=== PATIENT | female | born 1935 | race Caucasian/White ===

== ENCOUNTER 2019-01-18 22:48 | Emergency (ER) | payer MEDICARE, MEDICAID ==
[~2019-01-18] VITALS: Ht 152.4 cm; Wt 47.6 kg
[2019-01-18] MEDS ORDERED: VANCOMYCIN INJECTION 1,000 MG in NS (IVPB) 250 ML IV ONE (23:30)
[2019-01-18] MEDS ORDERED: CEFEPIME INJECTION 1,000 MG in WATER (STERILE) FOR INJECTION 10 ML IV ONE (23:30)
[2019-01-18] MEDS ORDERED: NS IV 1000 ML 2,100 ML IV ONE (23:30)
--- NOTE | 2019-01-18 23:55 | ED General ---
General Chief Complaint: Cough/Cold/Flu Symptoms Stated Complaint: FEVER Nursing Triage Note: pt sent from care home per ems for cough and fever, pt wtih hx of dementia and is confused but verbal. at bedside and is able to answer questions Nursing Sepsis Screen: Possible Sepsis Risk Exam Limitations: Other (baseline dementia) History of Present Illness Date Seen by Provider: Jan 18, 2019 Time Seen by Provider: 23:20 This is an 83-year-old female with a history of severe dementia who is brought to the emergency department from her care home for fever and cough first reported today. Patient cannot provide any history herself due to baseline dementia. No other symptoms were reported to us however. Allergies and Home Medications Allergies Coded Allergies: No Known Drug Allergies (Unverified , 01/18/19) Home Medications Acetaminophen 325 Mg Tablet, PRN, (Reported) Guaifenesin 400 Mg Tablet, 400 MG PO Q4H PRN for COUGH Prescribed by: ESA MCCANN on 01/19/19207 Levofloxacin 750 Mg Tablet, 750 MG PO DAILY Prescribed by: ESA MCCANN on 01/19/19207 Ondansetron HCl 4 Mg Tab, PRN, (Reported) Oseltamivir Phosphate 75 Mg Cap, 75 MG PO BID Prescribed by: ESA MCCANN on 01/19/19207 Polyethylene Glycol 3350 17 Gm Powd.pack, DAILY, (Reported) Promethazine Hcl 12.5 Mg Tablet, PRN, (Reported) Patient Home Medication List Home Medication List Reviewed: Yes Review of Systems Review of Systems Constitutional: other (review of systems is not obtainable secondary to dementia) Past Tarhnzu-Swghiq-Fiksjn Hx Patient Social History Recent Foreign Travel: No Contact w/Someone Who Travel: No Recent Infectious Disease Expo: No Physical Abuse: No Sexual Abuse: No Mistreated: No Fear: No Physical Exam Vital Signs Vital Signs - First Documented 01/18/19 01/18/19 23:15 23:26 Temp 99.6 Pulse 107 Resp 18 B/P (MAP) 150/79 (102) Pulse Ox 95 O2 Delivery Room Air Capillary Refill : Less Than 3 Seconds Height, Weight, BMI Height: 5'" Weight: 105lbs. oz. 47.715408jj; BMI Method:Stated General Appearance: No Apparent Distress HEENT: Normal ENT Inspection Neck: Supple; No JVD Respiratory: Other (mild coarse breath sounds bilaterally) Cardiovascular: Regular Rate, Rhythm, Normal Peripheral Pulses Gastrointestinal: Non Tender, Soft Extremity: Pedal Edema (mild, symmetrical) Neurologic/Psychiatric: Other (awake. Unable to cooperate with thorough neurologic testing however moves all 4 extremities grossly symmetrically, wiggles her toes on both sides after asking multiple times, no facial droop, says "no" when pressing on the skin of both feet, sensation appears to be intact symmetrically) Skin: Warm/Dry Focused Exam Lactate Level 01/18/19 00:05: Lactic Acid Level 2.15*H 01/19/19 01:54: Lactic Acid Level 2.10*H Lactic Acid Level Laboratory Tests Test 01/19/19 01:54 Lactic Acid Level 2.10 MMOL/L (0.50-2.00) *H Progress/Results/Core Measures Suspected Sepsis Recent Fever Within 48 Hours: Yes Infection Criteria Present: Suspected New Infection New/Unexplained Altered Menta: No Sepsis Screen: Possible Sepsis Risk SIRS Temperature:99.6 Pulse: 107 Respiratory Rate: 18 Laboratory Tests 01/18/19 00:05: White Blood Count 8.9 Blood Pressure 150 /79 Mean: 102 01/18/19 00:05: Lactic Acid Level 2.15*H 01/19/19 01:54: Lactic Acid Level 2.10*H Laboratory Tests 01/18/19 00:05: Creatinine 0.48L, INR Comment 1.1, Platelet Count 236, Total Bilirubin 0.2 Results/Orders Lab Results Laboratory Tests Test 01/18/19 00:05 01/18/19 00:45 01/19/19 01:54 Range/Units White Blood Count 8.9 4.3-11.0 10^3/uL Red Blood Count 3.55 L 4.35-5.85 10^6/uL Hemoglobin 10.8 L 11.5-16.0 G/DL Hematocrit 34 L 35-52 % Mean Corpuscular Volume 94 80-99 FL Mean Corpuscular Hemoglobin 30 25-34 PG Mean Corpuscular Hemoglobin Concent 32 32-36 G/DL Red Cell Distribution Width 14.4 10.0-14.5 % Platelet Count 236 130-400 10^3/uL Mean Platelet Volume 9.2 7.4-10.4 FL Neutrophils (%) (Auto) 84 H 42-75 % Lymphocytes (%) (Auto) 7 L 12-44 % Monocytes (%) (Auto) 7 0-12 % Eosinophils (%) (Auto) 0 0-10 % Basophils (%) (Auto) 0 0-10 % Neutrophils # (Auto) 7.5 1.8-7.8 X 10^3 Lymphocytes # (Auto) 0.7 L 1.0-4.0 X 10^3 Monocytes # (Auto) 0.6 0.0-1.0 X 10^3 Eosinophils # (Auto) 0.0 0.0-0.3 10^3/uL Basophils # (Auto) 0.0 0.0-0.1 10^3/uL Neutrophils % (Manual) 73 % Lymphocytes % (Manual) 8 % Monocytes % (Manual) 5 % Eosinophils % (Manual) 1 % Basophils % (Manual) 0 % Metamyelocytes % 1 % Myelocytes % 1 % Band Neutrophils 11 % Prothrombin Time 13.8 12.2-14.7 SEC INR Comment 1.1 0.8-1.4 Activated Partial Thromboplast Time 33 24-35 SEC Sodium Level 140 135-145 MMOL/L Potassium Level 3.7 3.6-5.0 MMOL/L Chloride Level 102 98-107 MMOL/L Carbon Dioxide Level 25 21-32 MMOL/L Anion Gap 13 5-14 MMOL/L Blood Urea Nitrogen 15 7-18 MG/DL Creatinine 0.48 L 0.60-1.30 MG/DL Estimat Glomerular Filtration Rate > 60 BUN/Creatinine Ratio 31 Glucose Level 171 H 70-105 MG/DL Lactic Acid Level 2.15 *H 2.10 *H 0.50-2.00 MMOL/L Calcium Level 8.6 8.5-10.1 MG/DL Corrected Calcium 9.0 8.5-10.1 MG/DL Total Bilirubin 0.2 0.1-1.0 MG/DL Aspartate Amino Transf (AST/SGOT) 13 5-34 U/L Alanine Aminotransferase (ALT/SGPT) 8 0-55 U/L Alkaline Phosphatase 51 40-136 U/L Total Protein 6.2 L 6.4-8.2 GM/DL Albumin 3.5 3.2-4.5 GM/DL Urine Color YELLOW Urine Clarity SL CLOUDY Urine pH 7.5 5-9 Urine Specific [place] 1.015 L 1.016-1.022 Urine Protein 1+ H NEGATIVE Urine Glucose (UA) NEGATIVE NEGATIVE Urine Ketones TRACE H NEGATIVE Urine Nitrite NEGATIVE NEGATIVE Urine Bilirubin NEGATIVE NEGATIVE Urine Urobilinogen 0.2 NORMAL MG/DL Urine Leukocyte Esterase NEGATIVE NEGATIVE Urine RBC (Auto) 2+ H NEGATIVE Urine RBC 5-10 H /HPF Urine WBC 5-10 H /HPF Urine Squamous Epithelial Cells 5-10 /HPF Urine Crystals NONE /LPF Urine Bacteria LARGE H /HPF Urine Casts NONE /LPF Urine Mucus NONE /LPF Urine Culture Indicated NO Micro Results Microbiology 01/18/19 Influenza Types A,B Antigen (IR[facility]) - Final, Complete My Orders Orders - ESA MCCANN DO Cbc With Automated Diff (01/18/19 23:28) Comprehensive Metabolic Panel (01/18/19 23:28) Blood Culture (01/18/19 23:28) Urinalysis (01/18/19 23:28) Urine Culture (01/18/19 23:28) Protime With Inr (01/18/19 23:28) Partial Thromboplastin Time (01/18/19 23:28) Chest 1 View Ap/Pa Only (01/18/19 23:28) Saline Lock/Iv-Start (01/18/19 23:28) Saline Lock/Iv-Start (01/18/19 23:28) Vital Signs Adult Sepsis Patie Q15M (01/18/19 23:28) O2 (01/18/19 23:28) Remove Rings In Anticipation O (01/18/19 23:28) Lactic Acid Analyzer (01/18/19 23:28) Influenza A And B Antigens (01/18/19 23:28) Ns Iv 1000 Ml (Sodium Chloride 0.9%) (01/18/19 23:30) Cefepime Injection (Maxipime Injection) (01/18/19 23:30) Vancomycin Injection (Vancomycin Injecti (01/18/19 23:30) Ct Chest Wo (01/19/19 00:51) Manual Differential (01/18/19 00:05) Oseltamivir 75 Mg Capsule (Tamiflu 75 (01/19/19 02:01) Oseltamivir 75 Mg Capsule (Tamiflu 75 (01/19/19 02:10) Medications Given in ED Current Medications Medications Dose Ordered Sig/Amtt Route Start Time Stop Time Status Last Admin Dose Admin Cefepime HCl 1000 mg/Sterile Water 10 ml @ 200 mls/hr ONCE ONCE IV 01/18/19 23:30 01/18/19 23:32 DC 01/19/19 00:35 200 MLS/HR Sodium Chloride 2,100 ml @ 2,100 mls/hr ONCE ONCE IV 01/18/19 23:30 01/19/19 00:29 DC 01/19/19 00:35 2,100 MLS/HR Vancomycin HCl 1000 mg/Sodium Chloride 250 ml @ 250 mls/hr ONCE ONCE IV 01/18/19 23:30 01/19/19 00:29 DC 01/19/19 00:35 250 MLS/HR Vital Signs/I&O 01/18/19 01/18/19 23:15 23:26 Temp 99.6 Pulse 107 Resp 18 B/P (MAP) 150/79 (102) Pulse Ox 95 O2 Delivery Room Air Room Air Capillary Refill : Less Than 3 Seconds Blood Pressure Mean: 102 Progress Note : Progress Note Patient is at risk for multidrug resistant organisms, she had a fever prior to arrival, she had a borderline temperature here although we did not obtain a rectal temperature. She has no leukocytosis but she does have a left shift. Lactic acid returned elevated greater than 2 but less than 4. Chest x-ray was abnormal, CT of the chest does not show evidence of pneumonia, however there is evidence of a urinary tract infection and I would empirically treat for influenza. Pt's requests dc back to care home. Will start empiric tamiflu and will treat with levaquin for UTI so as to cross cover for possible bacterial component to cough. Departure Impression Primary Impression: UTI (urinary tract infection) Additional Impressions: Lactic acidosis Bronchitis Disposition: 01 HOME, SELF-CARE Condition: Stable Departure-Patient Inst. Referrals: NO,LOCAL PHYSICIAN (PCP) Primary Care Physician Patient Instructions: Acute Bronchitis, Adult (DC) Scripts Guaifenesin (Guaifenesin) 400 Mg Tablet 400 MG PO Q4H PRN for COUGH for 7 Days, #30 TAB Prov: ESA MCCANN DO 01/19/19 Oseltamivir Phosphate (Tamiflu) 75 Mg Cap 75 MG PO BID for 5 Days, #9 CAP Prov: ESA MCCANN DO 01/19/19 Levofloxacin (Levofloxacin) 750 Mg Tablet 750 MG PO DAILY for 5 Days, #5 TAB Prov: ESA MCCANN DO 01/19/19 ESA MCCANN DO Jan 18, 2019 23:55
[2019-01-19] MEDS ORDERED: ASPIRIN 325 MG (00:33)
[2019-01-19] MEDS ORDERED: RALOXIFENE 60 MG (00:33)
[2019-01-19 00:45] LABS: INR 1.1 (0.8-1.4); PROTHROMBIN TIME PATIENT 13.8 SEC (12.2-14.7)
[2019-01-19 00:46] LABS: CARBON DIOXIDE 25 MMOL/L (21-32); CHLORIDE 102 MMOL/L (98-107); POTASSIUM 3.7 MMOL/L (3.6-5.0); SODIUM 140 MMOL/L (135-145)
[2019-01-19 00:47] LABS: ALANINE AMINOTRANSFERASE 8 U/L (0-55); ALBUMIN 3.5 GM/DL (3.2-4.5); ALKALINE PHOSPHATASE 51 U/L (40-136); BILIRUBIN,TOTAL 0.2 MG/DL (0.1-1.0); BUN/CREATININE RATIO 31; CALCIUM 8.6 MG/DL (8.5-10.1); CREATININE SERUM 0.48 MG/DL (0.60-1.30); GFR ESTIMATED > 60; GLUCOSE 171 MG/DL (70-105); TOTAL PROTEIN 6.2 GM/DL (6.4-8.2)
[2019-01-19] MEDS ORDERED: OMEPRAZOLE CAP 20MG (00:56)
[2019-01-19] MEDS ORDERED: ONDANSETRON TAB 4MG (00:56)
[2019-01-19] MEDS ORDERED: MEMANTINE (00:56)
[2019-01-19] MEDS ORDERED: DIVALPROEX 125 MG (00:56)
[2019-01-19] MEDS ORDERED: RISPERIDONE 0.25 MG (00:56)
[2019-01-19] MEDS ORDERED: HCL (00:56)
[2019-01-19] MEDS ORDERED: LEVOTHYROXIN TAB 50MCG (00:56)
[2019-01-19] MEDS ORDERED: RIVASTIGMINE 4.5 MG (00:56)
[2019-01-19] MEDS ORDERED: CITALOPRAM 10 MG (00:56)
[2019-01-19] MEDS ORDERED: DOCUSATE SOD (00:56)
[2019-01-19] MEDS ORDERED: FUROSEMIDE TAB 20MG (00:56)
[2019-01-19] MEDS ORDERED: ALPRAZOLAM TAB 0.5MG (00:56)
[2019-01-19 00:59] LABS: BASOPHILS % (AUTO) 0 % (0-10); EOSINOPHILS % (AUTO) 0 % (0-10); HEMATOCRIT 34 % (35-52); HEMOGLOBIN 10.8 G/DL (11.5-16.0); LYMPHOCYTES # (AUTO) 0.7 X 10^3 (1.0-4.0); LYMPHOCYTES % (AUTO) 7 % (12-44); MEAN CORPUSCULAR HEMOGLOBIN 30 PG (25-34); MEAN CORPUSCULAR HGB CONC 32 G/DL (32-36); MEAN CORPUSCULAR VOLUME 94 FL (80-99); MEAN PLATELET VOLUME 9.2 FL (7.4-10.4); MONOCYTES # (AUTO) 0.6 X 10^3 (0.0-1.0); MONOCYTES % (AUTO) 7 % (0-12); NEUTROPHILS # (AUTO) 7.5 X 10^3 (1.8-7.8); NEUTROPHILS % (AUTO) 84 % (42-75); PLATELET COUNT 236 10^3/uL (130-400); RED CELL DISTRIBUTION WIDTH 14.4 % (10.0-14.5); WHITE BLOOD COUNT 8.9 10^3/uL (4.3-11.0)
[2019-01-19 01:00] LABS: BAND NEUTROPHILS 11 %; NEUTROPHILS % (MANUAL) 73 %
[2019-01-19 01:01] LABS: BASOPHILS % (MANUAL) 0 %; EOSINOPHILS % (MANUAL) 1 %; LYMPHOCYTES % (MANUAL) 8 %; METAMYELOCYTES % 1 %; MONOCYTES % (MANUAL) 5 %; MYELOCYTES % 1 %
[2019-01-19] MEDS ORDERED: ACET325T38 (01:06)
[2019-01-19] MEDS ORDERED: POLY17PO6 (01:06)
[2019-01-19] MEDS ORDERED: PROM12.59 (01:06)
[2019-01-19] MEDS ORDERED: ONDN4T (01:06)
[2019-01-19 01:18] LABS: CLARITY,URINE SL CLOUDY; COLOR,URINE YELLOW
[2019-01-19 01:19] LABS: BACTERIA,URINE LARGE /HPF; BILIRUBIN,URINE NEGATIVE (NEGATIVE); GLUCOSE, URINE (UA) NEGATIVE (NEGATIVE); KETONES,URINE TRACE (NEGATIVE); LEUKOCYTE ESTERASE ,URINE NEGATIVE (NEGATIVE); NITRITE,URINE NEGATIVE (NEGATIVE); PH,URINE 7.5 (5-9); PROTEIN,URINE 1+ (NEGATIVE); UROBILINOGEN,URINE 0.2 MG/DL (NORMAL)
[2019-01-19] MEDS ORDERED: OSELTAMIVIR 75 MG (TAMIFLU) CAPSULE PO STA ×2 (02:01→02:10)
--- NOTE | 2019-01-19 02:05 | NUR ---
pts refused transfer, stonework supervisor notified.
[2019-01-19] MEDS ORDERED: OSLT75C PO (02:08)
[2019-01-19] MEDS ORDERED: LEVO750T39 PO (02:08)
[2019-01-19] MEDS ORDERED: GUAI400T71 PO (02:08)
[2019-01-19 02:25] VITALS: BP 129/71
--- NOTE | 2019-01-19 07:30 | Diagnostic Imaging Report ---
Indication: Cough and fever. Up-regulation of comparison. Findings: There are patchy bibasal infiltrates. Ramiro. Some minimal venous congestion. No pleural effusion or pneumothorax previous unremarkable Impression: Patchy bibasal trace left greater than right. Early pneumonia cannot excluded. Ramiro and some minimal central venous congestion Dictated by: Dictated on workstation # [id number]
--- NOTE | 2019-01-19 08:02 | Diagnostic Imaging Report ---
PROCEDURE: CT chest without contrast. TECHNIQUE: Multiple contiguous axial images were obtained through the chest without the use of intravenous contrast. INDICATION: Cough and fever with confusion There is no previous study for comparison. There is mild dependent atelectasis and/or pneumonitis in the lung bases. No consolidation is identified and there is no evidence of pulmonary mass. There is tortuous course to the trachea toward the right of midline. Note is made of circumscribed retrosternal nodule measuring approximately 0.9 x 1.1 cm in the axial plane. There is no significant pleural or pericardial fluid. No pathologic adenopathy is seen on the noncontrasted images. There is no evidence of acute osseous abnormality. IMPRESSION: Mild dependent atelectasis and/or pneumonitis without evidence of consolidating pneumonia. There is no significant third spacing of fluid. 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 Dictated by: Dictated on workstation # [id number]
== END 2019-01-19 02:25 | disposition home or self-care (01) ==
LOC: ER FS 22:50
DX: N39.0 Urinary tract infection, site not specified (principal); E87.2 Acidosis; J40 Bronchitis, not specified as acute or chronic; F03.90 Unspecified dementia, unspecified severity, without behavioral disturbance, psychotic disturbance, mood disturbance, and anxiety
CPT/HCPCS: 36415; 51701; 71045; 71250; 80053; 81000; 83605; 85007; 85027; 85610; 85730; 87040; 87088; 87804

== ENCOUNTER → 2020-03-08 | Outpatient (CLI) | payer MEDICARE, MEDICAID ==
[~2020-03-08] MED LIST: ACET325T38; ALPRAZOLAM TAB 0.5MG; ASPIRIN 325 MG; CITALOPRAM 10 MG; DIVALPROEX 125 MG; DOCUSATE SOD; FUROSEMIDE TAB 20MG; GUAI400T86 PO; HCL; LEVO750T39 PO; LEVOTHYROXIN TAB 50MCG; MEMANTINE; OMEPRAZOLE CAP 20MG; ONDANSETRON TAB 4MG; ONDN4T; OSLT75C PO; POLY17PO6; PROM12.59; RALOXIFENE 60 MG; RISPERIDONE 0.25 MG; RIVASTIGMINE 4.5 MG
[2020-03-08 13:00] LABS: POTASSIUM 4.4 MMOL/L (3.6-5.0); SODIUM 140 MMOL/L (135-145)
[2020-03-08 13:01] LABS: ALANINE AMINOTRANSFERASE 9 U/L (0-55); ALBUMIN 3.5 GM/DL (3.2-4.5); ALKALINE PHOSPHATASE 52 U/L (40-136); BILIRUBIN,TOTAL 0.2 MG/DL (0.1-1.0); BUN/CREATININE RATIO 38; CALCIUM 9.1 MG/DL (8.5-10.1); CARBON DIOXIDE 25 MMOL/L (21-32); CHLORIDE 103 MMOL/L (98-107); CREATININE SERUM 0.48 MG/DL (0.60-1.30); GFR ESTIMATED > 60; GLUCOSE 90 MG/DL (70-105); TOTAL PROTEIN 5.7 GM/DL (6.4-8.2)
[2020-03-08 16:03] LABS: FREE T4 (FREE THYROXINE) 1.02 NG/DL (0.70-1.48); VALPROIC ACID 17.8 UG/ML (50.0-100.0)
== END ==
LOC: LAB FS 11:53
PROVIDERS: ATTEND Pediatrics
DX: E03.9 Hypothyroidism, unspecified (principal); I10 Essential (primary) hypertension; F03.90 Unspecified dementia, unspecified severity, without behavioral disturbance, psychotic disturbance, mood disturbance, and anxiety
CPT/HCPCS: 36415; 80053; 80164; 84439; 84443

== ENCOUNTER → 2021-08-19 | Outpatient (CLI) | payer MEDICARE, MEDICAID ==
[2021-08-19 13:55] LABS: BILIRUBIN,URINE NEGATIVE (NEGATIVE); CLARITY,URINE CLOUDY; COLOR,URINE YELLOW; GLUCOSE, URINE (UA) NEGATIVE (NEGATIVE); KETONES,URINE NEGATIVE (NEGATIVE); NITRITE,URINE POSITIVE (NEGATIVE); PROTEIN,URINE NEGATIVE (NEGATIVE)
[2021-08-19 14:16] LABS: LEUKOCYTE ESTERASE ,URINE 1+ (NEGATIVE)
[2021-08-19 14:17] LABS: BACTERIA,URINE LARGE /HPF
== END ==
LOC: LAB FS 13:37
PROVIDERS: ATTEND Pediatrics
DX: Z01.89 Encounter for other specified special examinations (principal)
CPT/HCPCS: 81000; 87077; 87088; 87186

== ENCOUNTER 2021-11-24 14:35 | Emergency (ER) | payer MEDICARE, MEDICAID ==
--- OUTSIDE RECORDS SUMMARY | 2021-11-24 14:41 | XMS REPORT | Clinical Summary ---
Author Author [facility] Organization [facility] Address Unknown Phone Unavailable Care Team Providers Care Absorption Plant Operator Name Role Phone Gustavo De La Paz MD Unavailable Mychart, Generic Provider Unavailable Unavailable Raulito Gonzales MD PCP Kaylie Robles APRN-ENVIRONMENTAL CONSTRUCTION ENGINEER Unavailable Source Comments Some departments are not documenting in the electronic medical record. If you d o not see the information that you expected, contact Release of Information in [facility] [employer] Information Management department at [phone] for further assistan ce in locating additional records.[facility] Allergies Comments Active Allergy Reactions Severity Noted Date Morphine HIVES Medium 08/27/2015 Medications End Date Status Medication Sig Dispensed Refills Start Date Active fluticasone (FLONASE) 50 Apply 2 0 mcg/actuation nasal spray Sprays to each nostril as directed daily. Active levothyroxine (SYNTHROID) Take 25 mcg 0 25 mcg tablet by mouth daily. Active aspirin EC (ASPIR-LD) Take 325 mg 0 325 mg tablet by mouth daily. Active MULTIVIT Take by 0 &MINERALS/FERROUS FUM mouth. (MULTI VITAMIN PO) Active Cyanocobalamin 1,[address] under 0 subl tongue. Active raloxifene (EVISTA) 60 mg Take 60 mg by 0 tablet mouth daily before breakfast. Active cholecalciferol(+) Take 2,000 0 (VITAMIN D-3) 2,000 unit Units by tablet mouth daily. Active vitamin E 400 unit Take 400 0 capsule Units by mouth daily. Active folic acid (FOLVITE) 1 mg Take 1 mg by 0 tablet mouth daily. Active donepezil (ARICEPT) 5 mg Take 1 Tab by 180 Tab 3 tablet mouth twice 5 daily. Active sertraline (ZOLOFT) 50 mg Take 1 Tab by 30 Tab 5 tablet mouth daily. 5 Active QUEtiapine (SEROQUEL) 25 Take 1 Tab by 270 Tab 3 mg tablet mouth three 5 times daily. Active LORazepam (ATIVAN) 1 mg Take 1 tablet 30 Tab 0 tablet every 12 5 hours as needed for anxiety. Active Problems Problem Noted Date Alzheimer disease 08/27/2015 Overview: Formatting of this note might be differ ent from the original. Onset of cognitive issues around the ag e of 76 with progressive decline interfering with daily function. Most consistent with probable AD. 08/2015: MMSE 9, LMI 0, LMII 0 --> sugg est amnestic and global cognitive impairment c/w AD. Last Assessment & Plan: Formatting of this note might be differ ent from the original. 1) vitamin B12 and TSH today. 2) we will obtain an MRI in [facility] nd send the results to us (CD of the scan to Dr. De La Paz). Order given to the m 3) Start citalopram 10mg a day for depr essive symptoms. 4) continue aricept at 5mg a day. 5) Return to see us in about 3 months Medical History Medical History Date Comments Disorganized thinking Memory loss Anxiety Social History Date Tobacco Use Types Packs/Day Years Used Never Smoker Smokeless Tobacco: Never Used Comments Alcohol Use Standard Drinks/Week No 0 (1 standard drink = 0.6 o z pure alcohol) Sex Assigned at Date Recorded Not on file Last Filed Vital Signs Reading Time Taken Comments Vital Sign 121/68 08/27/2015 12:49 PM CDT Blood Pressure 84 08/27/2015 12:49 PM CDT Pulse - - Temperature - - Respiratory Rate - - Oxygen Saturation - - Inhaled Oxygen Concentration 39 kg (86 lb) 08/27/2015 12:49 PM CDT Weight 149.9 cm (4' 11") 08/27/2015 12:49 PM CDT Height 17.37 08/27/2015 12:49 PM CDT Body Mass Index Plan of Treatment Health Maintenance Due Date Last Done Comments MEDICARE ANNUAL WELLNESS 1937 VISIT DTAP/TDAP VACCINES (1 - 1955 Tdap) PHYSICAL (COMPREHENSIVE) 1955 EXAM SHINGLES RECOMBINANT 1987 VACCINE (1 of 2) OSTEOPOROSIS 2002 SCREENING/MONITORING PNEUMONIA (PPSV23) 2002 VACCINE (1 of 1 - PPSV23) INFLUENZA VACCINE 06/15/2021 Results Not on filefrom Last 3 Months Insurance Type Payer Benefit Subscriber ID Effective Phone Address Plan / Dates Group Medicare MEDICARE MEDICARE [id number] 2002-P [phone] [address] [place] [address] PPO [employer] [place] [employer] [id number] 2014-P [address] [address] [place] [phone] [phone] Advance Directives Patient Biopharmaceutical Rep Explanation Type Date Recorded Advance 08/27/2015 1:52 PM Directive/DPOA Care Teams Start Date End Date Absorption Plant Operator Relationship Specialty 09/03/15 Raulito Gonzales MD PCP - General Pediatrics [address] [place] [address] 08/27/15 Gustavo De La Paz MD Neurology [address] [facility] [address] [place] [address] 09/02/15 Mychart, Generic Provider 10/07/15 Kaylie Robles, DIRECTOR OF FINANCIAL AID-ENVIRONMENTAL CONSTRUCTION ENGINEER Neurology [address] [facility] [address] [place] [address]
--- NOTE | 2021-11-24 14:47 | ED Fever ---
History of Present Illness General Stated Complaint: FEVER History of Present Illness Date Seen by Provider: Nov 24, 2021 Time Seen by Provider: 14:43 Initial Comments 85-year-old female brought in by EMS. Patient was sent due to fever and decreased responsiveness. Patient has known dementia and has not been verbal for at least 5 years. She has some hand and feet contractures that are chronic. Patient yesterday with kind of awaken and eat. Today however she has had a fever and will not awaken to eat or respond anything. Patient tested positive for Covid this morning. Allergies and Home Medications Allergies Coded Allergies: No Known Drug Allergies (Unverified , 01/18/19) Patient Home Medication List Home Medication List Reviewed: Yes Acetaminophen (Tylenol) 325 Mg Tablet, PRN, (Reported) Entered as Reported by: MARGE HESS on 01/19/19105 Guaifenesin (Guaifenesin) 400 Mg Tablet, 400 MG PO Q4H PRN for COUGH Prescribed by: ESA MCCANN on 01/19/19207 Levofloxacin (Levofloxacin) 750 Mg Tablet, 750 MG PO DAILY Prescribed by: ESA MCCANN on 01/19/19207 Ondansetron HCl (Zofran) 4 Mg Tab, PRN, (Reported) Entered as Reported by: MARGE HESS on 01/19/19105 Oseltamivir Phosphate (Tamiflu) 75 Mg Cap, 75 MG PO BID Prescribed by: ESA MCCANN on 01/19/19207 Polyethylene Glycol 3350 (Miralax) 17 Gm Powd.pack, DAILY, (Reported) Entered as Reported by: MARGE HESS on 01/19/19105 Promethazine Hcl (Phenergan) 12.5 Mg Tablet, PRN, (Reported) Entered as Reported by: MARGE HESS on 01/19/19105 [Alprazolam Tab 0.5MG] , (Reported) Entered as Reported by: MARGE HESS on 01/19/1955 [Aspirin Tab 325MG] , (Reported) Entered as Reported by: MARGE HESS on 01/19/1932 [Citalopram Tab 10MG] , (Reported) Entered as Reported by: MARGE HESS on 01/19/1955 [Divalproex Cap 125MG] , (Reported) Entered as Reported by: MARGE HESS on 01/19/1955 [Docusate Sod Tab 100MG] , (Reported) Entered as Reported by: MARGE HESS on 01/19/1955 [Furosemide Tab 20MG] , (Reported) Entered as Reported by: MARGE HESS on 01/19/1955 [Levothyroxin Tab 50MCG] , (Reported) Entered as Reported by: MARGE HESS on 01/19/1955 [Memantine Tab Hcl 5MG] , (Reported) Entered as Reported by: MARGE HESS on 01/19/1955 [Omeprazole Cap 20MG] , (Reported) Entered as Reported by: MARGE HESS on 01/19/1955 [Ondansetron Tab 4MG] , (Reported) Entered as Reported by: MARGE HESS on 01/19/1955 [Raloxifene Tab 60MG] , (Reported) Entered as Reported by: MARGE HESS on 01/19/1932 [Risperidone Tab 0.25MG] , (Reported) Entered as Reported by: MARGE HESS on 01/19/1955 [Rivastigmine Cap 4.5MG] , (Reported) Entered as Reported by: MARGE HESS on 01/19/1955 Review of Systems Review of Systems Constitutional: see HPI, fever EENTM: no symptoms reported Respiratory: no symptoms reported Cardiovascular: no symptoms reported Gastrointestinal: no symptoms reported Genitourinary: no symptoms reported Musculoskeletal: no symptoms reported Skin: no symptoms reported Psychiatric/Neurological: See HPI Patient nonverbal and HPI limited with information provided by her Past Uqezfwt-Txnves-Jwidlo Hx Seasonal Allergies Seasonal Allergies: No Past Medical History Surgeries: No Respiratory: No Cardiac: No Neurological: Yes Dementia Genitourinary: No Gastrointestinal: No Musculoskeletal: No Endocrine: Yes Hypothyroidsim HEENT: No Cancer: No Psychosocial: No Integumentary: No Blood Disorders: No Physical Exam Vital Signs - First Documented Capillary Refill : Height: 5'" Weight: 105lbs. oz. 47.991217zk; BMI Method:Stated General Appearance: other (Chronically ill, known contractures of upper and lower extremities, patient does not awaken or respond to stimulation) Respiratory: lungs clear, normal breath sounds Cardiovascular: normal peripheral pulses, regular rate, rhythm Neurologic/Psychiatric: other (Baseline dementia, no nonverbal, does not awaken or respond to stimuli) Skin: normal color, warm/dry Progress/Results/Core Measures Suspected Sepsis SIRS Temperature: Pulse: Respiratory Rate: Laboratory Tests 11/24/21 14:45: White Blood Count 15.1H Blood Pressure / Mean: Laboratory Tests 11/24/21 14:45: Creatinine 0.37L, Platelet Count 306, Total Bilirubin 0.3 Results/Orders Lab Results Laboratory Tests Test 11/24/21 14:45 Range/Units White Blood Count 15.1 H 4.3-11.0 10^3/uL Red Blood Count 4.38 3.80-5.11 10^6/uL Hemoglobin 13.2 11.5-16.0 g/dL Hematocrit 40 35-52 % Mean Corpuscular Volume 91 80-99 fL Mean Corpuscular Hemoglobin 30 25-34 pg Mean Corpuscular Hemoglobin Concent 33 32-36 g/dL Red Cell Distribution Width 14.8 H 10.0-14.5 % Platelet Count 306 130-400 10^3/uL Mean Platelet Volume 8.9 L 9.0-12.2 fL Neutrophils (%) (Auto) 87 H 42-75 % Lymphocytes (%) (Auto) 5 L 12-44 % Monocytes (%) (Auto) 7 0-12 % Eosinophils (%) (Auto) 0 0-10 % Basophils (%) (Auto) 0 0-10 % Neutrophils # (Auto) 13.1 H 1.8-7.8 X 10^3 Lymphocytes # (Auto) 0.8 L 1.0-4.0 X 10^3 Monocytes # (Auto) 1.1 H 0.0-1.0 X 10^3 Eosinophils # (Auto) 0.0 0.0-0.3 10^3/uL Basophils # (Auto) 0.0 0.0-0.1 10^3/uL Neutrophils % (Manual) 56 % Lymphocytes % (Manual) 4 % Monocytes % (Manual) 5 % Eosinophils % (Manual) 0 % Basophils % (Manual) 1 % Band Neutrophils 32 % Atypical Lymphocytes 2 % Platelet Estimate NORMAL Blood Morphology Comment NORMAL Sodium Level 135 135-145 MMOL/L Potassium Level 3.8 3.6-5.0 MMOL/L Chloride Level 98 98-107 MMOL/L Carbon Dioxide Level 23 21-32 MMOL/L Anion Gap 14 5-14 MMOL/L Blood Urea Nitrogen 12 7-18 MG/DL Creatinine 0.37 L 0.60-1.30 MG/DL Estimat Glomerular Filtration Rate 167 BUN/Creatinine Ratio 32 Glucose Level 138 H 70-105 MG/DL Calcium Level 9.0 8.5-10.1 MG/DL Corrected Calcium 9.2 8.5-10.1 MG/DL Total Bilirubin 0.3 0.1-1.0 MG/DL Aspartate Amino Transf (AST/SGOT) 19 5-34 U/L Alanine Aminotransferase (ALT/SGPT) 12 0-55 U/L Alkaline Phosphatase 63 40-136 U/L Total Protein 6.7 6.4-8.2 GM/DL Albumin 3.8 3.2-4.5 GM/DL My Orders Orders - BETH LOMBARDO DO Cbc With Automated Diff (11/24/21 14:51) Comprehensive Metabolic Panel (11/24/21 14:51) Ed Iv/Invasive Line Start (11/24/21 14:51) Ns Iv 500 Ml (Sodium Chloride 0.9%) (11/24/21 15:00) Chest 1 View Ap/Pa Only (11/24/21 14:51) Manual Differential (11/24/21 14:45) Medications Given in ED Current Medications Medications Dose Ordered Sig/Matt Route Start Time Stop Time Status Last Admin Dose Admin Sodium Chloride 500 ml @ 0 mls/hr Q0M ONCE IV 11/24/21 15:00 11/24/21 15:01 DC 11/24/21 15:08 1,000 MLS/HR Vital Signs/I&O 11/24/21 11/24/21 14:40 14:40 Temp 36.8 Pulse 86 Resp 18 B/P (MAP) 134/70 (91) Pulse Ox 94 O2 Delivery Nasal Cannula Nasal Cannula O2 Flow Rate 2.00 2.00 Capillary Refill : Progress Note : Progress Note I had a long in-depth conversation with patient's concerning care goals and probable outcomes. After discussion and him spending some time thinking about it. He would like her to be discharged back to the care center on hospice. I called and discussed with Dr. Raulito Gonzales who will arrange for her hospice care. Patient will be discharged back in stable condition but likely to rapidly decline Diagnostic Imaging Diagonstic Imaging: Xray Plain Films/CT/US/NM/MRI: chest Comments CHEST 1 VIEW AP/PA ONLY INDICATION: Fever. TIME OF EXAM: 2:56 PM CORRELATION is made with prior chest radiograph from 01/18/2019. FINDINGS: The heart size is stable. There is some prominence to the aortic knob, similar to prior study. There appears to be some infiltrate in the left lung base partially obscuring the left hemidiaphragm. The right lung appears clear. The pulmonary vascularity is normal. No effusion or pneumothorax is seen. IMPRESSION: Findings suggestive of left basilar infiltrate. Departure Impression Primary Impression: Advancing dementia Additional Impressions: COVID-19 Transitioned from acute care to hospice Disposition: 01 HOME, SELF-CARE Condition: Stable Departure-Patient Inst. Referrals: NO,LOCAL PHYSICIAN (PCP/Family) Primary Care Physician Patient Instructions: Palliative Care Add. Discharge Instructions: Dr. Gonzales will arrange for hospice consult and transition BETH LOMBARDO DO Nov 24, 2021 14:47
[2021-11-24 15:00] LABS: HEMATOCRIT 40 % (35-52); HEMOGLOBIN 13.2 g/dL (11.5-16.0); LYMPHOCYTES % (AUTO) 5 % (12-44); MEAN CORPUSCULAR HEMOGLOBIN 30 pg (25-34); MEAN CORPUSCULAR HGB CONC 33 g/dL (32-36); MEAN CORPUSCULAR VOLUME 91 fL (80-99); MEAN PLATELET VOLUME 8.9 fL (9.0-12.2); MONOCYTES % (AUTO) 7 % (0-12); NEUTROPHILS % (AUTO) 87 % (42-75); PLATELET COUNT 306 10^3/uL (130-400); WHITE BLOOD COUNT 15.1 10^3/uL (4.3-11.0)
[2021-11-24] MEDS ORDERED: NS IV 500 ML 500 ML IV ONE (15:00)
[2021-11-24 15:01] LABS: BASOPHILS % (AUTO) 0 % (0-10); EOSINOPHILS % (AUTO) 0 % (0-10)
[2021-11-24 15:02] LABS: LYMPHOCYTES # (AUTO) 0.8 X 10^3 (1.0-4.0); MONOCYTES # (AUTO) 1.1 X 10^3 (0.0-1.0); NEUTROPHILS # (AUTO) 13.1 X 10^3 (1.8-7.8)
--- NOTE | 2021-11-24 15:05 | Diagnostic Imaging Report ---
INDICATION: Fever. TIME OF EXAM: 2:56 PM CORRELATION is made with prior chest radiograph from 01/18/2019. FINDINGS: The heart size is stable. There is some prominence to the aortic knob, similar to prior study. There appears to be some infiltrate in the left lung base partially obscuring the left hemidiaphragm. The right lung appears clear. The pulmonary vascularity is normal. No effusion or pneumothorax is seen. IMPRESSION: Findings suggestive of left basilar infiltrate. Dictated by: Dictated on workstation # [id number]
[2021-11-24 15:08] LABS: BAND NEUTROPHILS 32 %; NEUTROPHILS % (MANUAL) 56 %
[2021-11-24 15:09] LABS: ATYPICAL LYMPHOCYTES 2 %; BASOPHILS % (MANUAL) 1 %; EOSINOPHILS % (MANUAL) 0 %; LYMPHOCYTES % (MANUAL) 4 %; MONOCYTES % (MANUAL) 5 %; PLATELET ESTIMATE NORMAL; RBC MORPH NORMAL
[2021-11-24 15:18] LABS: ALBUMIN 3.8 GM/DL (3.2-4.5); BILIRUBIN,TOTAL 0.3 MG/DL (0.1-1.0); CREATININE SERUM 0.37 MG/DL (0.60-1.30); POTASSIUM 3.8 MMOL/L (3.6-5.0); TOTAL PROTEIN 6.7 GM/DL (6.4-8.2)
[2021-11-24 15:41] VITALS: BP 136/71
== END 2021-11-24 15:50 | disposition home or self-care (01) ==
LOC: EDUNIT# 14:35 → ER FS 14:35
DX: U07.1 COVID-19 (principal); F03.90 Unspecified dementia, unspecified severity, without behavioral disturbance, psychotic disturbance, mood disturbance, and anxiety; Z51.5 Encounter for palliative care; E03.9 Hypothyroidism, unspecified; Z79.899 Other long term (current) drug therapy; Z73.0 Burn-out
CPT/HCPCS: 36415; 71045; 80053; 85007; 85027

== ENCOUNTER → 2021-12-21 | Outpatient (CLI) | payer MEDICARE, MEDICAID ==
[2021-12-21 19:00] LABS: BACTERIA,URINE LARGE /HPF; BILIRUBIN,URINE NEGATIVE (NEGATIVE); CLARITY,URINE CLOUDY; COLOR,URINE YELLOW; GLUCOSE, URINE (UA) NEGATIVE (NEGATIVE); KETONES,URINE TRACE (NEGATIVE); LEUKOCYTE ESTERASE ,URINE NEGATIVE (NEGATIVE); NITRITE,URINE NEGATIVE (NEGATIVE); PH,URINE 6.5 (5-9); PROTEIN,URINE NEGATIVE (NEGATIVE)
== END ==
LOC: LAB FS 18:43
PROVIDERS: ATTEND Pediatrics
DX: Z01.89 Encounter for other specified special examinations (principal)
CPT/HCPCS: 81000; 87077; 87088

== ENCOUNTER → 2021-12-24 | Outpatient (CLI) | payer MEDICARE, MEDICAID ==
[2021-12-24 15:55] LABS: BILIRUBIN,URINE NEGATIVE (NEGATIVE); CLARITY,URINE SL CLOUDY; COLOR,URINE YELLOW; GLUCOSE, URINE (UA) NEGATIVE (NEGATIVE); KETONES,URINE NEGATIVE (NEGATIVE); LEUKOCYTE ESTERASE ,URINE NEGATIVE (NEGATIVE); NITRITE,URINE NEGATIVE (NEGATIVE); PROTEIN,URINE NEGATIVE (NEGATIVE)
[2021-12-24 16:01] LABS: BACTERIA,URINE FEW /HPF
[2021-12-24 16:02] LABS: AMORPHOUS SEDIMENT,UR FEW AMOR URATES /LPF
== END ==
LOC: IHC 15:37
PROVIDERS: ATTEND Pediatrics
DX: G31.1 Senile degeneration of brain, not elsewhere classified (principal)
CPT/HCPCS: 81000; 87088